=== PATIENT | female | born 1970 | race Caucasian/White ===

== ENCOUNTER → 2018-10-29 | Outpatient (CLI) | payer OTHER | LOC: BRMIMAGING 13:36 | PROVIDERS: ATTEND Preventive Medicine Occupational Medicine | DX: S96.912A Strain of unspecified muscle and tendon at ankle and foot level, left foot, initial encounter (principal); S82.432A Displaced oblique fracture of shaft of left fibula, initial encounter for closed fracture | CPT/HCPCS: 73610-PO ==